=== PATIENT | male | born 1960 | race Caucasian/White ===

== ENCOUNTER 2016-10-28 16:19 | Inpatient (IN) | payer OTHER ==
[~2016-10-28] VITALS: Ht 165.1 cm; Wt 51.4 kg
[~2016-10-28 16:19] MED LIST: ADDERALL12.5 MG PO; ALKA-SELTZER P1 EAC2 PO; AMPHETAMINE S12.5 MG PO; ATROVENT H200 INHALA IH; CHANTIX1 MG PO; DUONEB 2.5-0.5 M3 ML AEROSOL; GILENYA0.5 MG PO; KLONOPIN0.5 M1 PO; LIORESAL10 MG PO; LIPITOR40 MG PO; NEURONTIN600 MG PO; NORCO 5/3251 TABLET PO; NORVASC5 MG PO; OXYBUTYNIN CHLO15 MG PO; PRILOSEC20 MG PO; PROAIR HFA8.5 GM IH; SINGULAIR10 MG PO; SPIRIVA1 INHALATI IH; SYMBICORT60 INHALAT IH; THEO-24300 MG PO; THEOCHRON200 MG PO; TYLENOL EXTRA500 MG PO; VICKS NYQUIL C236 ML PO; ZESTRIL40 MG PO; ZYBAN 150 MG T150 MG PO
[2016-10-28 17:01] LABS: HEMATOCRIT 37.3 % (38.0-50.0); MCH 31.9 PG (29.0-34.0); MCHC 32.7 G/DL (30.0-36.0); MCV 97.4 FL (86-99); PLATELET COUNT 184 K/uL (156-360); RBC DIS.WIDTH-CV 12.5 % (11.8-14.6); RBC DIS.WIDTH-SD 42.5 % (39-53); RED BLOOD COUNT 3.83 M/uL (4.00-5.50); WHITE BLOOD COUNT 3.5 K/uL (4.1-10.2)
[2016-10-28 17:13] LABS: CHLORIDE 99 mEq/L (99-109); POTASSIUM 3.9 mEq/L (3.7-5.4); SODIUM 138 mEq/L (136-147)
[2016-10-28 17:14] LABS: GLUCOSE 114 mg/dL (70-99)
[2016-10-28 17:16] LABS: ANION GAP 8 MEQ/L (2-14)
[2016-10-28 17:18] LABS: GFR ESTIMATE (CALCULATED) > 59 mL/min/
[2016-10-28 17:19] LABS: UREA NITROGEN (BUN) 16 mg/dL (9-23)
[2016-10-28 17:22] LABS: TROP-I INTERPRETATION NEGATIVE; TROPONIN-I < 0.01 ng/mL (0.0-0.30)
[2016-10-28] MEDS ORDERED: BACLOFEN20 MG PO (20:04)
[2016-10-28] MEDS ORDERED: AMOX TR-K CLV1 EAC4 PO (20:15)
[2016-10-28 20:49] LABS: BASE EXCESS 3.7 mEq/L (-3 to +3); BICARBONATE 31.7 mEq/L (22-26); CARBOXY HGB 1.3 % (0-5); METHEMOGLOBIN 1.2 % (0-1.5); PCO2 63 mm Hg (35-45); PO2 211 mm Hg (80-100); pH 7.31 (7.35-7.45)
[2016-10-28 20:50] LABS: COMMENTS - BLOOD GASES C+A+; DEVICE NEBULIZER; O2 FLOW 7 L/MIN; SITE RR
[2016-10-28 22:30] LABS: TROP-I INTERPRETATION NEGATIVE; TROPONIN-I < 0.01 ng/mL (0.0-0.30)
[2016-10-29] VITALS (7 sets, daily range): BP systolic 114–150; BP diastolic 76–88
[2016-10-29 04:41] LABS: MCH 32.2 PG (29.0-34.0); MCHC 33.3 G/DL (30.0-36.0); MCV 96.5 FL (86-99); MEAN PLAT.VOLUME 9.7 uM^3 (9.0-12.4); PLATELET COUNT 190 K/uL (156-360); RBC DIS.WIDTH-CV 12.5 % (11.8-14.6); RBC DIS.WIDTH-SD 42.5 % (39-53); RED BLOOD COUNT 3.73 M/uL (4.00-5.50); WHITE BLOOD COUNT 4.1 K/uL (4.1-10.2)
[2016-10-29 04:58] LABS: CHLORIDE 99 mEq/L (99-109); POTASSIUM 4.3 mEq/L (3.7-5.4); SODIUM 135 mEq/L (136-147)
[2016-10-29 04:59] LABS: GLUCOSE 151 mg/dL (70-99)
[2016-10-29 05:01] LABS: ANION GAP 8 MEQ/L (2-14)
[2016-10-29 05:03] LABS: GFR ESTIMATE (CALCULATED) > 59 mL/min/
[2016-10-29 05:04] LABS: UREA NITROGEN (BUN) 13 mg/dL (9-23)
[2016-10-29 05:13] LABS: TROP-I INTERPRETATION NEGATIVE; TROPONIN-I < 0.01 ng/mL (0.0-0.30)
[2016-10-29 15:31] LABS: BASE EXCESS 7.9 mEq/L (-3 to +3); BICARBONATE 33.3 mEq/L (22-26); CARBOXY HGB 1.7 % (0-5); COMMENTS - BLOOD GASES A+C+; DEVICE NC; METHEMOGLOBIN 1.4 % (0-1.5); O2 FLOW 2 L/MIN; PCO2 49 mm Hg (35-45); PO2 57 mm Hg (80-100); SITE LR; TOTAL RESP RATE 26 resp/min; pH 7.44 (7.35-7.45)
[2016-10-30 03:00] VITALS: BP 111/69
[2016-10-30 07:18] LABS: ANION GAP 14 MEQ/L (2-14); CHLORIDE 96 MEQ/L (99-109); GFR ESTIMATE (CALCULATED) > 59 mL/min/; GLUCOSE 122 mg/dL (70-99); POTASSIUM 4.4 MEQ/L (3.7-5.4); SAMPLE HEMOLYSIS CHECK 0; SAMPLE ICTERIC CHECK 0; SAMPLE LIPEMIA CHECK 0; SODIUM 138 MEQ/L (136-147)
[2016-10-30 07:27] LABS: UREA NITROGEN (BUN) 21 mg/dL (9-23)
[2016-10-30 08:02] VITALS: BP 134/85
[2016-10-30 11:45] VITALS: BP 132/97
[2016-10-30 16:47] VITALS: BP 116/80
[2016-10-30 19:24] VITALS: BP 132/85
[2016-10-30 23:20] VITALS: BP 116/71
[2016-10-31 03:38] VITALS: BP 108/76
[2016-10-31 07:17] LABS: HEMATOCRIT 35.5 % (38.0-50.0); MCH 31.5 PG (29.0-34.0); MCHC 32.7 G/DL (30.0-36.0); MCV 96.5 FL (86-99); MEAN PLAT.VOLUME 10.2 uM^3 (9.0-12.4); PLATELET COUNT 241 K/uL (156-360); RBC DIS.WIDTH-CV 13.1 % (11.8-14.6); RBC DIS.WIDTH-SD 45.6 % (39-53); RED BLOOD COUNT 3.68 M/uL (4.00-5.50)
[2016-10-31 07:21] LABS: WHITE BLOOD COUNT 8.7 K/uL (4.1-10.2)
[2016-10-31 07:37] LABS: ANION GAP 9 MEQ/L (2-14); CHLORIDE 96 MEQ/L (99-109); GFR ESTIMATE (CALCULATED) > 59 mL/min/; GLUCOSE 117 mg/dL (70-99); POTASSIUM 4.1 MEQ/L (3.7-5.4); SAMPLE HEMOLYSIS CHECK 0; SAMPLE ICTERIC CHECK 0; SAMPLE LIPEMIA CHECK 0; SODIUM 136 MEQ/L (136-147); UREA NITROGEN (BUN) 30 mg/dL (9-23)
[2016-10-31 09:00] VITALS: BP 135/70
[2016-10-31 12:00] VITALS: BP 122/74
[2016-10-31 16:00] VITALS: BP 124/67
[2016-10-31 19:14] VITALS: BP 120/80
[2016-11-01 00:12] VITALS: BP 131/65
[2016-11-01 04:15] VITALS: BP 109/69
[2016-11-01 06:38] LABS: HEMATOCRIT 37.2 % (38.0-50.0); MCHC 33.1 G/DL (30.0-36.0); MCV 96.9 FL (86-99); MEAN PLAT.VOLUME 10.2 uM^3 (9.0-12.4); PLATELET COUNT 222 K/uL (156-360); RBC DIS.WIDTH-CV 12.8 % (11.8-14.6); RBC DIS.WIDTH-SD 45.3 % (39-53); RED BLOOD COUNT 3.84 M/uL (4.00-5.50); WHITE BLOOD COUNT 8.7 K/uL (4.1-10.2)
[2016-11-01 07:07] LABS: ANION GAP 7 MEQ/L (2-14); CHLORIDE 97 MEQ/L (99-109); GFR ESTIMATE (CALCULATED) > 59 mL/min/; GLUCOSE 100 mg/dL (70-99); POTASSIUM 4.1 MEQ/L (3.7-5.4); SAMPLE HEMOLYSIS CHECK 0; SAMPLE ICTERIC CHECK 0; SAMPLE LIPEMIA CHECK 0; SODIUM 137 MEQ/L (136-147); UREA NITROGEN (BUN) 25 mg/dL (9-23)
[2016-11-01] MEDS ORDERED: AZITHROMYCIN500 M1 PO (07:38)
[2016-11-01] MEDS ORDERED: SPIRIVA1 INHALATI IH (07:39)
[2016-11-01] MEDS ORDERED: MEDROL DOSEPAK4 MG PO (08:07)
[2016-11-01 20:52] VITALS: BP 150/86
[2016-11-01 23:41] VITALS: BP 112/66
[2016-11-02 01:00] VITALS: BP 124/72
[2016-11-02 08:08] VITALS: BP 130/78
[2016-11-02 16:32] VITALS: BP 144/80
== END 2016-11-02 17:56 | disposition home or self-care (01) | DRG 190 ==
LOC: EME → EDBD 16:19 → EME 16:19 → EDOF 19:42 → 4EAST 20:26 → EDOF 20:26 → 4EAST 10-29 00:55 → 4SOUTH 11-02 01:00
PROVIDERS: Emergency Medicine; Hospitalist; Internal Medicine; Physician Assistant Medical
PROC: 5A09457 Assistance with Respiratory Ventilation, 24-96 Consecutive Hours, Continuous Positive Airway Pressure (ICD-10-PCS; principal; 2016-10-29)
DX: J44.1 Chronic obstructive pulmonary disease with (acute) exacerbation (principal); J96.21 Acute and chronic respiratory failure with hypoxia; E87.2 Acidosis; G35 Multiple sclerosis; Z99.81 Dependence on supplemental oxygen; Z68.1 Body mass index [BMI] 19.9 or less, adult; C34.90 Malignant neoplasm of unspecified part of unspecified bronchus or lung; I10 Essential (primary) hypertension; R91.8 Other nonspecific abnormal finding of lung field; F10.20 Alcohol dependence, uncomplicated; E78.5 Hyperlipidemia, unspecified; Z66 Do not resuscitate; K21.9 Gastro-esophageal reflux disease without esophagitis; F41.9 Anxiety disorder, unspecified; I25.10 Atherosclerotic heart disease of native coronary artery without angina pectoris; Z87.891 Personal history of nicotine dependence
CPT/HCPCS: 36600; 71020; 71275; 80048; 82803; 82948; 84484; 85027; 87070; 87205; 93005; 94002; 94640; 94640 76; 94644; 94660; 94668; 94760; 94799; 99202; 99281; 99285; J1100; J1650; J2920; J2930; J7030; J7644

== ENCOUNTER 2017-07-09 15:08 | Emergency (ER) | payer OTHER ==
[~2017-07-09] VITALS: Ht 165.1 cm; Wt 45.1 kg
[~2017-07-09 15:08] MED LIST changes: +AMOX TR-K CLV1 EAC4 PO; +AZITHROMYCIN500 M1 PO; +BACLOFEN20 MG PO; +MEDROL DOSEPAK4 MG PO
[2017-07-09 16:44] LABS: HEMATOCRIT 38.5 % (38.0-50.0); MCH 28.4 PG (29.0-34.0); MCHC 31.4 G/DL (30.0-36.0); MCV 90.4 FL (86-99); MEAN PLAT.VOLUME 9.4 uM^3 (9.0-12.4); PLATELET COUNT 344 K/uL (156-360); RBC DIS.WIDTH-CV 13.5 % (11.8-14.6); RBC DIS.WIDTH-SD 45.1 % (39-53); RED BLOOD COUNT 4.26 M/uL (4.00-5.50); WHITE BLOOD COUNT 9.7 K/uL (4.1-10.2)
[2017-07-09 16:50] LABS: CHLORIDE 99 mEq/L (99-109); POTASSIUM 4.4 mEq/L (3.7-5.4); SODIUM 137 mEq/L (136-147)
[2017-07-09 16:51] LABS: GLUCOSE 91 mg/dL (70-99)
[2017-07-09 16:53] LABS: ANION GAP 14 MEQ/L (2-14)
[2017-07-09 16:55] LABS: GFR ESTIMATE (CALCULATED) > 59 mL/min/
[2017-07-09 16:56] LABS: UREA NITROGEN (BUN) 16 mg/dL (9-23)
[2017-07-09 17:04] LABS: TROP-I INTERPRETATION NEGATIVE; TROPONIN-I < 0.01 ng/mL (0.0-0.30)
[2017-07-09] MEDS ORDERED: PREDNISONE20 MG PO (19:38)
[2017-07-09 20:18] VITALS: BP 112/89
== END 2017-07-09 20:19 | disposition home or self-care (01) ==
LOC: EME 15:08
PROVIDERS: Emergency Medicine
DX: J44.1 Chronic obstructive pulmonary disease with (acute) exacerbation (principal); G35 Multiple sclerosis; E78.5 Hyperlipidemia, unspecified; Z98.2 Presence of cerebrospinal fluid drainage device; Z87.891 Personal history of nicotine dependence
CPT/HCPCS: 71010; 80048; 84484; 85027; 93005; 94644; 99281; 99284; J2930

== ENCOUNTER 2017-08-05 14:22 | Inpatient (IN) | payer OTHER ==
[~2017-08-05] VITALS: Ht 165.1 cm; Wt 45.5 kg
[~2017-08-05 14:22] MED LIST changes: +PREDNISONE20 MG PO; +WELLBUTRIN SR150 MG PO; -ZYBAN 150 MG T150 MG PO
[2017-08-05 15:19] LABS: EOSINOPHIL (%) 0.8 % (0-5); EOSINOPHIL COUNT 0.1 K/uL (0-0.3); HEMATOCRIT 33.6 % (38.0-50.0); IMMATURE GRANULOCYTE (%) 0.5 % (0.0-0.7); IMMATURE GRANULOCYTE COUNT 0.1 K/uL; INSTRUMENT ABS NEUTROPHIL CT 8.7 K/uL; LYMPHOCYTE COUNT 0.2 K/uL (1.0-2.8); MCH 28.1 PG (29.0-34.0); MCV 90.8 FL (86-99); MEAN PLAT.VOLUME 9.6 uM^3 (9.0-12.4); MONOCYTE (%) 7.2 % (3-12); MONOCYTE COUNT 0.7 K/uL (0-0.8); NEUTROPHIL (%) 88.8 % (45-76); NEUTROPHIL COUNT 8.7 K/uL (1.8-6.4); PLATELET COUNT 344 K/uL (156-360); RBC DIS.WIDTH-SD 46.9 % (39-53); WHITE BLOOD COUNT 9.8 K/uL (4.1-10.2)
[2017-08-05 15:28] LABS: CHLORIDE 98 mEq/L (99-109); POTASSIUM 4.2 mEq/L (3.7-5.4); SODIUM 136 mEq/L (136-147)
[2017-08-05 15:30] LABS: GLUCOSE 143 mg/dL (70-99)
[2017-08-05 15:31] LABS: ANION GAP 11 MEQ/L (2-14)
[2017-08-05 15:32] LABS: TOTAL BILIRUBIN 0.2 mg/dL (0.0-1.0)
[2017-08-05 15:33] LABS: ALKALINE PHOSPHATASE 108 IU/L (3-129)
[2017-08-05 15:34] LABS: GFR ESTIMATE (CALCULATED) > 59 mL/min/
[2017-08-05 15:35] LABS: UREA NITROGEN (BUN) 15 mg/dL (9-23)
[2017-08-05 15:40] LABS: TROP-I INTERPRETATION NEGATIVE; TROPONIN-I < 0.01 ng/mL (0.0-0.30)
[2017-08-05] MEDS ORDERED: SPIRIVA1 INHALATI IH (17:27)
[2017-08-05] MEDS ORDERED: ADVAIR 500/501 DISK IH (17:31)
[2017-08-05] MEDS ORDERED: ZANTAC150 MG PO (17:31)
[2017-08-05] MEDS ORDERED: FLUVIRIN 245 MCG/019 IM (17:31)
[2017-08-05 19:24] LABS: FERRITIN 199 NG/ML (22-322)
[2017-08-05 20:36] LABS: ADD MIUA? NO; BILIRUBIN NEGATIVE; BLOOD NEGATIVE; COLOR YELLOW ((YELLOW)); GLUCOSE (STRIP) 150; KETONES NEGATIVE; LEUKOCYTES NEGATIVE; NITRITE NEGATIVE; PROTEIN (STRIP) NEGATIVE; SPECIFIC GRAVITY 1.011 (1.000-1.030); UROBILINOGEN 0.2 MG/DL (0.2-1.0)
[2017-08-05 21:30] LABS: IRON < 10 MCG/DL (35-150)
[2017-08-06] VITALS (7 sets, daily range): BP systolic 117–156; BP diastolic 69–93
[2017-08-06 06:47] LABS: EOSINOPHIL (%) 0 % (0-5); HEMATOCRIT 31.2 % (38.0-50.0); IMMATURE GRANULOCYTE (%) 0.4 % (0.0-0.7); INSTRUMENT ABS NEUTROPHIL CT 4.1 K/uL; LYMPHOCYTE COUNT 0.1 K/uL (1.0-2.8); MCH 27.8 PG (29.0-34.0); MCHC 31.4 G/DL (30.0-36.0); MCV 88.4 FL (86-99); MEAN PLAT.VOLUME 9.5 uM^3 (9.0-12.4); MONOCYTE COUNT 0.4 K/uL (0-0.8); NEUTROPHIL (%) 89.2 % (45-76); NEUTROPHIL COUNT 4.1 K/uL (1.8-6.4); PLATELET COUNT 372 K/uL (156-360); RBC DIS.WIDTH-CV 13.9 % (11.8-14.6); RBC DIS.WIDTH-SD 45.2 % (39-53); RED BLOOD COUNT 3.53 M/uL (4.00-5.50); WHITE BLOOD COUNT 4.6 K/uL (4.1-10.2)
[2017-08-06 07:40] LABS: ANION GAP 9 MEQ/L (2-14); CHLORIDE 100 MEQ/L (99-109); GFR ESTIMATE (CALCULATED) > 59 mL/min/; GLUCOSE 127 mg/dL (70-99); POTASSIUM 4.7 MEQ/L (3.7-5.4); SAMPLE HEMOLYSIS CHECK 0; SAMPLE ICTERIC CHECK 0; SAMPLE LIPEMIA CHECK 0; SODIUM 137 MEQ/L (136-147); UREA NITROGEN (BUN) 14 mg/dL (9-23)
[2017-08-06 09:25] LABS: INTERNAL CONTROL VALID? YES
[2017-08-06 15:46] LABS: INFLUENZA A VIRAL ANTIGEN NEGATIVE; INFLUENZA B VIRAL ANTIGEN NEGATIVE
[2017-08-07 03:48] VITALS: BP 131/80
[2017-08-07 06:06] LABS: EOSINOPHIL (%) 0 % (0-5); HEMATOCRIT 33.7 % (38.0-50.0); IMMATURE GRANULOCYTE (%) 0.4 % (0.0-0.7); INSTRUMENT ABS NEUTROPHIL CT 6.5 K/uL; LYMPHOCYTE COUNT 0.1 K/uL (1.0-2.8); MCH 28.7 PG (29.0-34.0); MCHC 32.3 G/DL (30.0-36.0); MCV 88.7 FL (86-99); MEAN PLAT.VOLUME 9.6 uM^3 (9.0-12.4); MONOCYTE (%) 7.2 % (3-12); MONOCYTE COUNT 0.5 K/uL (0-0.8); NEUTROPHIL (%) 90.9 % (45-76); NEUTROPHIL COUNT 6.5 K/uL (1.8-6.4); PLATELET COUNT 483 K/uL (156-360); RBC DIS.WIDTH-CV 14.1 % (11.8-14.6); RBC DIS.WIDTH-SD 45.5 % (39-53); WHITE BLOOD COUNT 7.1 K/uL (4.1-10.2)
[2017-08-07 06:38] LABS: ALKALINE PHOSPHATASE 102 IU/L (3-129); ANION GAP 10 MEQ/L (2-14); CHLORIDE 102 MEQ/L (99-109); GFR ESTIMATE (CALCULATED) > 59 mL/min/; GLUCOSE 128 mg/dL (70-99); POTASSIUM 4.8 MEQ/L (3.7-5.4); SAMPLE HEMOLYSIS CHECK 0; SAMPLE ICTERIC CHECK 0; SAMPLE LIPEMIA CHECK 0; SODIUM 142 MEQ/L (136-147); TOTAL BILIRUBIN 0.2 MG/DL (0.0-1.0); UREA NITROGEN (BUN) 16 mg/dL (9-23)
[2017-08-07 07:35] VITALS: BP 134/83
[2017-08-07 12:35] VITALS: BP 156/85
[2017-08-07 15:28] VITALS: BP 135/86
[2017-08-07 20:01] VITALS: BP 149/81
[2017-08-07 23:59] VITALS: BP 128/75
[2017-08-08 04:14] VITALS: BP 124/71
[2017-08-08 08:06] VITALS: BP 121/88
[2017-08-08 11:55] VITALS: BP 142/82
[2017-08-08 16:26] VITALS: BP 134/92
[2017-08-09 00:07] VITALS: BP 140/90
[2017-08-09 08:58] VITALS: BP 137/90
[2017-08-09 15:35] VITALS: BP 135/61
[2017-08-09 23:32] VITALS: BP 128/75
[2017-08-10 05:58] LABS: HEMATOCRIT 38.7 % (38.0-50.0); MCH 27.8 PG (29.0-34.0); MCHC 30.5 G/DL (30.0-36.0); MCV 91.3 FL (86-99); MEAN PLAT.VOLUME 9.6 uM^3 (9.0-12.4); PLATELET COUNT 510 K/uL (156-360); RBC DIS.WIDTH-CV 14.3 % (11.8-14.6); RBC DIS.WIDTH-SD 47.6 % (39-53); RED BLOOD COUNT 4.24 M/uL (4.00-5.50); WHITE BLOOD COUNT 12.1 K/uL (4.1-10.2)
[2017-08-10 08:07] VITALS: BP 110/54; BP 113/80
[2017-08-10 16:37] VITALS: BP 124/78
[2017-08-11 00:13] VITALS: BP 104/61
[2017-08-11 06:13] LABS: HEMATOCRIT 36.6 % (38.0-50.0); MCH 28.6 PG (29.0-34.0); MCHC 31.4 G/DL (30.0-36.0); MEAN PLAT.VOLUME 9.6 uM^3 (9.0-12.4); PLATELET COUNT 461 K/uL (156-360); RBC DIS.WIDTH-CV 14.5 % (11.8-14.6); RBC DIS.WIDTH-SD 47.8 % (39-53); RED BLOOD COUNT 4.02 M/uL (4.00-5.50)
[2017-08-11 08:00] VITALS: BP 110/71
[2017-08-11 12:00] VITALS: BP 104/67
[2017-08-11 16:00] VITALS: BP 116/79
[2017-08-12 00:21] VITALS: BP 97/60
[2017-08-12 06:02] LABS: HEMATOCRIT 36.1 % (38.0-50.0); MCH 28.1 PG (29.0-34.0); MCHC 30.5 G/DL (30.0-36.0); MCV 92.1 FL (86-99); MEAN PLAT.VOLUME 9.7 uM^3 (9.0-12.4); PLATELET COUNT 446 K/uL (156-360); RBC DIS.WIDTH-CV 14.8 % (11.8-14.6); RBC DIS.WIDTH-SD 49.1 % (39-53); RED BLOOD COUNT 3.92 M/uL (4.00-5.50); WHITE BLOOD COUNT 17.4 K/uL (4.1-10.2)
[2017-08-12 07:59] VITALS: BP 135/69
[2017-08-12 15:33] VITALS: BP 124/71
[2017-08-12 23:35] VITALS: BP 115/79
[2017-08-13 06:33] LABS: HEMATOCRIT 36.6 % (38.0-50.0); MCH 28.4 PG (29.0-34.0); MCHC 31.1 G/DL (30.0-36.0); MCV 91.3 FL (86-99); MEAN PLAT.VOLUME 9.6 uM^3 (9.0-12.4); PLATELET COUNT 418 K/uL (156-360); RBC DIS.WIDTH-CV 14.8 % (11.8-14.6); RBC DIS.WIDTH-SD 49.1 % (39-53); RED BLOOD COUNT 4.01 M/uL (4.00-5.50); WHITE BLOOD COUNT 17.8 K/uL (4.1-10.2)
[2017-08-13 07:49] VITALS: BP 92/67
[2017-08-13 16:44] VITALS: BP 91/66
[2017-08-13 23:35] VITALS: BP 142/74
[2017-08-14 06:03] LABS: HEMATOCRIT 35.1 % (38.0-50.0); MCHC 31.3 G/DL (30.0-36.0); MCV 89.3 FL (86-99); MEAN PLAT.VOLUME 9.7 uM^3 (9.0-12.4); PLATELET COUNT 424 K/uL (156-360); RBC DIS.WIDTH-CV 14.6 % (11.8-14.6); RBC DIS.WIDTH-SD 47.7 % (39-53); RED BLOOD COUNT 3.93 M/uL (4.00-5.50); WHITE BLOOD COUNT 13.7 K/uL (4.1-10.2)
[2017-08-14 08:52] VITALS: BP 132/81
[2017-08-14 15:00] VITALS: BP 114/69
[2017-08-15 00:18] VITALS: BP 104/67
[2017-08-15 07:55] VITALS: BP 108/83
[2017-08-15 10:48] VITALS: BP 107/65
[2017-08-15] MEDS ORDERED: MIRTAZAPINE30 MG PO (12:10)
[2017-08-15] MEDS ORDERED: FLONASE16 G1 BOTH NARES (12:11)
[2017-08-15] MEDS ORDERED: MUCINEX600 MG PO (12:11)
[2017-08-15] MEDS ORDERED: DOCUSATE SODIU100 MG PO (12:12)
[2017-08-15] MEDS ORDERED: THEOPHYLLINE400 MG PO (12:16)
[2017-08-15] MEDS ORDERED: LEVAQUIN750 MG PO (12:18)
[2017-08-15] MEDS ORDERED: PREDNISONE10 MG PO (12:19)
== END 2017-08-15 14:45 | disposition home health service (06) | DRG 190 ==
LOC: EME 14:22 → EDOF 18:04 → 5SOUTH 18:04 → ENRESERV 18:05 → 5SOUTH 20:41
PROVIDERS: Emergency Medicine; Hospitalist; Internal Medicine
PROC: 5A09357 Assistance with Respiratory Ventilation, Less than 24 Consecutive Hours, Continuous Positive Airway Pressure (ICD-10-PCS; principal; 2017-08-05)
DX: J44.0 Chronic obstructive pulmonary disease with (acute) lower respiratory infection (principal); J18.9 Pneumonia, unspecified organism; J96.21 Acute and chronic respiratory failure with hypoxia; F33.9 Major depressive disorder, recurrent, unspecified; Z68.1 Body mass index [BMI] 19.9 or less, adult; J44.1 Chronic obstructive pulmonary disease with (acute) exacerbation; D64.9 Anemia, unspecified; E78.5 Hyperlipidemia, unspecified; G35 Multiple sclerosis; I10 Essential (primary) hypertension; F41.9 Anxiety disorder, unspecified; F10.21 Alcohol dependence, in remission; G47.33 Obstructive sleep apnea (adult) (pediatric); Z99.89 Dependence on other enabling machines and devices; K59.00 Constipation, unspecified; K21.9 Gastro-esophageal reflux disease without esophagitis; Z87.891 Personal history of nicotine dependence; Z82.5 Family history of asthma and other chronic lower respiratory diseases; Z86.011 Personal history of benign neoplasm of the brain; Z98.2 Presence of cerebrospinal fluid drainage device; Z99.81 Dependence on supplemental oxygen; N40.0 Benign prostatic hyperplasia without lower urinary tract symptoms; N32.89 Other specified disorders of bladder; Z91.041 Radiographic dye allergy status; Z88.6 Allergy status to analgesic agent
CPT/HCPCS: 71010; 71020; 74176; 78580; 80048; 80053; 80198; 81003; 82272; 82607; 82728; 83540; 84443; 84484; 85025; 85027; 85379; 87040; 87070; 87106; 87205; 87449; 87502; 94010; 94640; 94640 76; 94660; 94667; 94668; 94760; 94799; 97530 GO; 97530 GP; 99202; 99281; 99285; A9540; J0456; J0696; J1100; J1650; J1956; J2405; J2920; J2930; J3475; J7030; J7050; J7512; J7644

== ENCOUNTER 2017-09-18 14:55 | Inpatient (IN) | payer OTHER ==
[~2017-09-18] VITALS: Ht 165.1 cm; Wt 48.4 kg
[~2017-09-18 14:55] MED LIST changes: +ADVAIR 500/501 DISK IH; +DOCUSATE SODIU100 MG PO; +FLONASE16 G1 BOTH NARES; +FLUVIRIN 245 MCG/019 IM; +LEVAQUIN750 MG PO; +MIRTAZAPINE30 MG PO; +MUCINEX600 MG PO; +PREDNISONE10 MG PO; +THEOPHYLLINE400 MG PO; +ZANTAC150 MG PO
[2017-09-18 15:19] LABS: EOSINOPHIL (%) 0.5 % (0-5); EOSINOPHIL COUNT 0.1 K/uL (0-0.3); HEMATOCRIT 36.1 % (38.0-50.0); IMMATURE GRANULOCYTE (%) 0.8 % (0.0-0.7); IMMATURE GRANULOCYTE COUNT 0.1 K/uL; INSTRUMENT ABS NEUTROPHIL CT 9.6 K/uL; LYMPHOCYTE COUNT 0.2 K/uL (1.0-2.8); MCHC 30.2 G/DL (30.0-36.0); MCV 89.6 FL (86-99); MONOCYTE (%) 10.2 % (3-12); MONOCYTE COUNT 1.1 K/uL (0-0.8); NEUTROPHIL (%) 86.3 % (45-76); NEUTROPHIL COUNT 9.6 K/uL (1.8-6.4); PLATELET COUNT 396 K/uL (156-360); RBC DIS.WIDTH-CV 15.7 % (11.8-14.6); RBC DIS.WIDTH-SD 51.7 % (39-53); RED BLOOD COUNT 4.03 M/uL (4.00-5.50); WHITE BLOOD COUNT 11.1 K/uL (4.1-10.2)
[2017-09-18 15:28] LABS: CHLORIDE 96 mEq/L (99-109); POTASSIUM 4.2 mEq/L (3.7-5.4); SODIUM 137 mEq/L (136-147)
[2017-09-18 15:29] LABS: MAGNESIUM 1.9 mg/dL (1.3-2.7)
[2017-09-18 15:31] LABS: GLUCOSE 114 mg/dL (70-99)
[2017-09-18 15:32] LABS: ANION GAP 9 MEQ/L (2-14)
[2017-09-18 15:33] LABS: TOTAL BILIRUBIN 0.2 mg/dL (0.0-1.0)
[2017-09-18 15:34] LABS: ALKALINE PHOSPHATASE 155 IU/L (3-129)
[2017-09-18 15:35] LABS: GFR ESTIMATE (CALCULATED) > 59 mL/min/
[2017-09-18 15:36] LABS: UREA NITROGEN (BUN) 14 mg/dL (9-23)
[2017-09-18 15:38] LABS: CREATINE KINASE 33 IU/L (1-294); TOTAL CK 33 IU/L (1-294)
[2017-09-18 15:40] LABS: TROP-I INTERPRETATION NEGATIVE; TROPONIN-I < 0.01 ng/mL (0.0-0.30)
[2017-09-18 15:43] LABS: CK-MB 4.1 ng/mL (0.0-4.9)
[2017-09-18 16:21] LABS: THEOPHYLLINE 9.6 MCG/ML (10-20)
[2017-09-18] MEDS ORDERED: LEVALBUTER1.25 MG/3 IH (16:36)
[2017-09-18] MEDS ORDERED: THEO-DUR,THEOC300 MG PO (16:38)
[2017-09-18] MEDS ORDERED: BREO ELLIPTA 21 EACH IH (16:41)
[2017-09-18 16:58] LABS: ADD MIUA? YES; BILIRUBIN NEGATIVE; BLOOD NEGATIVE; COLOR YELLOW ((YELLOW)); GLUCOSE (STRIP) NEGATIVE; KETONES NEGATIVE; LEUKOCYTES TRACE; NITRITE NEGATIVE; PROTEIN (STRIP) NEGATIVE; SPECIFIC GRAVITY 1.023 (1.000-1.030)
[2017-09-18 17:07] LABS: BACTERIA NONE SEEN /HPF; EPITHELIAL CELLS RARE /HPF; HYALINE CASTS 0-5 /LPF; MUCUS TRACE /LPF; RED BLOOD CELLS 0-5 /HPF (0-5); UCUL ADDED? YES
[2017-09-18 17:41] LABS: BASE EXCESS 9.1 mEq/L (-3 to +3); BICARBONATE 34.6 mEq/L (22-26); CARBOXY HGB 1.7 % (0-5); METHEMOGLOBIN 0.8 % (0-1.5); PCO2 51 mm Hg (35-45); pH 7.44 (7.35-7.45)
[2017-09-18 17:42] LABS: COMMENTS - BLOOD GASES A+C+; CONTINUOUS POS AIRWAY PRESSURE 5 cm H2O; DEVICE VENT; FI02 40 %; MODE SPON; PO2 74 mm Hg (80-100); PRES. SUPPORT 8 CM/H2O; SITE RR; TOTAL RESP RATE 18 resp/min
[2017-09-18 20:04] VITALS: BP 125/92
[2017-09-18 20:44] LABS: METH RESISTANT S AUREUS PCR NEGATIVE (NEGATIVE); PROBE CHECK PASS; SPECIMEN PROCESSING CONTROL PASS
[2017-09-18 21:00] VITALS: BP 113/78
[2017-09-18 22:00] VITALS: BP 124/87
[2017-09-18 23:00] VITALS: BP 122/89
[2017-09-19] VITALS (24 sets, daily range): BP systolic 111–141; BP diastolic 74–95
[2017-09-19 05:22] LABS: EOSINOPHIL (%) 0.1 % (0-5); HEMATOCRIT 32.7 % (38.0-50.0); IMMATURE GRANULOCYTE (%) 0.5 % (0.0-0.7); INSTRUMENT ABS NEUTROPHIL CT 7.7 K/uL; LYMPHOCYTE COUNT 0.1 K/uL (1.0-2.8); MCH 26.7 PG (29.0-34.0); MCHC 30.6 G/DL (30.0-36.0); MCV 87.4 FL (86-99); MEAN PLAT.VOLUME 9.5 uM^3 (9.0-12.4); MONOCYTE (%) 1.4 % (3-12); MONOCYTE COUNT 0.1 K/uL (0-0.8); NEUTROPHIL (%) 96.2 % (45-76); NEUTROPHIL COUNT 7.7 K/uL (1.8-6.4); PLATELET COUNT 361 K/uL (156-360); RBC DIS.WIDTH-CV 15.8 % (11.8-14.6); RBC DIS.WIDTH-SD 50.4 % (39-53); RED BLOOD COUNT 3.74 M/uL (4.00-5.50)
[2017-09-19 05:45] LABS: ANION GAP 9 MEQ/L (2-14); CHLORIDE 98 MEQ/L (99-109); GFR ESTIMATE (CALCULATED) > 59 mL/min/; GLUCOSE 104 mg/dL (70-99); MAGNESIUM 1.9 mg/dl (1.3-2.7); POTASSIUM 4.6 MEQ/L (3.7-5.4); SAMPLE HEMOLYSIS CHECK 0; SAMPLE ICTERIC CHECK 0; SAMPLE LIPEMIA CHECK 0; SODIUM 136 MEQ/L (136-147); UREA NITROGEN (BUN) 12 mg/dL (9-23)
[2017-09-19 12:22] LABS: POINT-OF-CARE METER ID UU13113803
[2017-09-20] VITALS (25 sets, daily range): BP systolic 61–144; BP diastolic 44–93
[2017-09-20 05:44] LABS: GFR ESTIMATE (CALCULATED) > 59 mL/min/
[2017-09-20 05:57] LABS: VANCOMYCIN, TROUGH 8.3 MCG/ML (10-20)
[2017-09-20 09:20] LABS: BASE EXCESS 3.5 mEq/L (-3 to +3); BICARBONATE 29.1 mEq/L (22-26); CARBOXY HGB 1.3 % (0-5); COMMENTS - BLOOD GASES A+C+; DEVICE MASK VENT; METHEMOGLOBIN 1.3 % (0-1.5); PCO2 48 mm Hg (35-45); PO2 69 mm Hg (80-100); SITE RR; pH 7.39 (7.35-7.45)
[2017-09-20 09:21] LABS: FI02 40 %; PEEP 5 CM/H20; PRES. SUPPORT 8 CM/H2O; TOTAL RESP RATE 12 resp/min
[2017-09-20 14:40] LABS: EOSINOPHIL (%) 0 % (0-5); HEMATOCRIT 33.5 % (38.0-50.0); IMMATURE GRANULOCYTE (%) 0.4 % (0.0-0.7); INSTRUMENT ABS NEUTROPHIL CT 6.4 K/uL; MCH 27.6 PG (29.0-34.0); MCHC 31.6 G/DL (30.0-36.0); MCV 87.2 FL (86-99); MEAN PLAT.VOLUME 9.7 uM^3 (9.0-12.4); MONOCYTE (%) 6.7 % (3-12); MONOCYTE COUNT 0.5 K/uL (0-0.8); NEUTROPHIL (%) 92.3 % (45-76); NEUTROPHIL COUNT 6.4 K/uL (1.8-6.4); PLATELET COUNT 398 K/uL (156-360); RBC DIS.WIDTH-CV 15.7 % (11.8-14.6); RBC DIS.WIDTH-SD 50.4 % (39-53); RED BLOOD COUNT 3.84 M/uL (4.00-5.50); WHITE BLOOD COUNT 6.9 K/uL (4.1-10.2)
[2017-09-20 14:50] LABS: ANION GAP 10 MEQ/L (2-14); CHLORIDE 101 MEQ/L (99-109); MAGNESIUM 2.1 mg/dl (1.3-2.7); POTASSIUM 4.3 MEQ/L (3.7-5.4); SAMPLE HEMOLYSIS CHECK 0; SAMPLE ICTERIC CHECK 0; SAMPLE LIPEMIA CHECK 0; SODIUM 139 MEQ/L (136-147); TOTAL BILIRUBIN 0.3 MG/DL (0.0-1.0)
[2017-09-20 14:55] LABS: ALKALINE PHOSPHATASE 104 IU/L (3-129); GFR ESTIMATE (CALCULATED) > 59 mL/min/; GLUCOSE 141 mg/dL (70-99); UREA NITROGEN (BUN) 13 mg/dL (9-23)
[2017-09-20 17:35] LABS: POINT-OF-CARE METER ID UU13113731
[2017-09-21] VITALS (24 sets, daily range): BP systolic 71–122; BP diastolic 50–83
[2017-09-21 01:28] LABS: POINT-OF-CARE METER ID UU14174217
[2017-09-21 06:25] LABS: EOSINOPHIL (%) 0 % (0-5); HEMATOCRIT 31.4 % (38.0-50.0); IMMATURE GRANULOCYTE (%) 0.7 % (0.0-0.7); MCH 27.6 PG (29.0-34.0); MCHC 31.5 G/DL (30.0-36.0); MCV 87.5 FL (86-99); MEAN PLAT.VOLUME 10.1 uM^3 (9.0-12.4); MONOCYTE (%) 7.9 % (3-12); MONOCYTE COUNT 0.4 K/uL (0-0.8); NEUTROPHIL (%) 90.5 % (45-76); PLATELET COUNT 344 K/uL (156-360); RBC DIS.WIDTH-CV 16.2 % (11.8-14.6); RBC DIS.WIDTH-SD 51.6 % (39-53); RED BLOOD COUNT 3.59 M/uL (4.00-5.50); WHITE BLOOD COUNT 4.5 K/uL (4.1-10.2)
[2017-09-21 06:54] LABS: POINT-OF-CARE METER ID UU13113731
[2017-09-21 07:03] LABS: ALKALINE PHOSPHATASE 88 IU/L (3-129); ANION GAP 8 MEQ/L (2-14); CHLORIDE 102 MEQ/L (99-109); GFR ESTIMATE (CALCULATED) > 59 mL/min/; GLUCOSE 125 mg/dL (70-99); POTASSIUM 4.3 MEQ/L (3.7-5.4); SAMPLE HEMOLYSIS CHECK 0; SAMPLE ICTERIC CHECK 0; SAMPLE LIPEMIA CHECK 0; SODIUM 139 MEQ/L (136-147); TOTAL BILIRUBIN 0.3 MG/DL (0.0-1.0); UREA NITROGEN (BUN) 11 mg/dL (9-23)
[2017-09-21 12:45] LABS: POINT-OF-CARE METER ID UU14208751
[2017-09-21 17:15] LABS: POINT-OF-CARE METER ID UU14208751
[2017-09-21 23:19] LABS: POINT-OF-CARE METER ID UU14162636
[2017-09-22] VITALS (25 sets, daily range): BP systolic 0–144; BP diastolic 0–87
[2017-09-22 05:45] LABS: POINT-OF-CARE METER ID UU13113803
[2017-09-22 06:25] LABS: HEMATOCRIT 31.9 % (38.0-50.0); MCH 26.9 PG (29.0-34.0); MCHC 30.7 G/DL (30.0-36.0); MCV 87.6 FL (86-99); MEAN PLAT.VOLUME 9.9 uM^3 (9.0-12.4); PLATELET COUNT 367 K/uL (156-360); RBC DIS.WIDTH-CV 16.2 % (11.8-14.6); RBC DIS.WIDTH-SD 51.8 % (39-53); RED BLOOD COUNT 3.64 M/uL (4.00-5.50); WHITE BLOOD COUNT 6.7 K/uL (4.1-10.2)
[2017-09-22 06:45] LABS: ANION GAP 6 MEQ/L (2-14); CHLORIDE 103 MEQ/L (99-109); GFR ESTIMATE (CALCULATED) > 59 mL/min/; GLUCOSE 178 mg/dL (70-99); POTASSIUM 3.6 MEQ/L (3.7-5.4); SAMPLE HEMOLYSIS CHECK 0; SAMPLE ICTERIC CHECK 0; SAMPLE LIPEMIA CHECK 0; SODIUM 140 MEQ/L (136-147); UREA NITROGEN (BUN) 13 mg/dL (9-23)
[2017-09-22 13:44] LABS: POINT-OF-CARE METER ID UU13113803
[2017-09-22 17:38] LABS: POINT-OF-CARE METER ID UU13113803
[2017-09-22 23:57] LABS: POINT-OF-CARE METER ID UU14314082
[2017-09-23] VITALS (24 sets, daily range): BP systolic 82–151; BP diastolic 52–91
[2017-09-23 04:45] LABS: POINT-OF-CARE METER ID UU13113731
[2017-09-23 04:57] LABS: HEMATOCRIT 32.9 % (38.0-50.0); MCH 27.7 PG (29.0-34.0); MCHC 31.3 G/DL (30.0-36.0); MCV 88.4 FL (86-99); PLATELET COUNT 395 K/uL (156-360); RBC DIS.WIDTH-CV 16.5 % (11.8-14.6); RED BLOOD COUNT 3.72 M/uL (4.00-5.50)
[2017-09-23 05:10] LABS: CHLORIDE 105 mEq/L (99-109); POTASSIUM 3.9 mEq/L (3.7-5.4); SODIUM 142 mEq/L (136-147)
[2017-09-23 05:11] LABS: MAGNESIUM 1.8 mg/dL (1.3-2.7)
[2017-09-23 05:13] LABS: GLUCOSE 167 mg/dL (70-99)
[2017-09-23 05:14] LABS: ANION GAP 9 MEQ/L (2-14)
[2017-09-23 05:15] LABS: TOTAL BILIRUBIN 0.2 mg/dL (0.0-1.0)
[2017-09-23 05:17] LABS: GFR ESTIMATE (CALCULATED) > 59 mL/min/
[2017-09-23 05:18] LABS: ALKALINE PHOSPHATASE 86 IU/L (3-129); UREA NITROGEN (BUN) 14 mg/dL (9-23)
[2017-09-23 12:49] LABS: POINT-OF-CARE METER ID UU13113803
[2017-09-23 17:35] LABS: POINT-OF-CARE METER ID UU14174217
[2017-09-23 23:49] LABS: POINT-OF-CARE METER ID UU13113803
[2017-09-24] VITALS (21 sets, daily range): BP systolic 82–151; BP diastolic 53–93
[2017-09-24 05:37] LABS: POINT-OF-CARE METER ID UU14314082
[2017-09-24 07:17] LABS: ANION GAP 6 MEQ/L (2-14); CHLORIDE 104 MEQ/L (99-109); GFR ESTIMATE (CALCULATED) > 59 mL/min/; GLUCOSE 180 mg/dL (70-99); SAMPLE HEMOLYSIS CHECK 1; SAMPLE ICTERIC CHECK 0; SAMPLE LIPEMIA CHECK 0; SODIUM 141 MEQ/L (136-147); UREA NITROGEN (BUN) 15 mg/dL (9-23)
[2017-09-24 12:32] LABS: POINT-OF-CARE METER ID UU14162636
[2017-09-24 18:18] LABS: POINT-OF-CARE METER ID UU14162636
[2017-09-25] VITALS (23 sets, daily range): BP systolic 80–167; BP diastolic 56–92
[2017-09-25 00:12] LABS: POINT-OF-CARE METER ID UU14162636
[2017-09-25 05:15] LABS: POINT-OF-CARE METER ID UU14174217
[2017-09-25 07:55] LABS: EOSINOPHIL (%) 0 % (0-5); IMMATURE GRANULOCYTE (%) 0.8 % (0.0-0.7); IMMATURE GRANULOCYTE COUNT 0.1 K/uL; INSTRUMENT ABS NEUTROPHIL CT 12.7 K/uL; MCH 28.4 PG (29.0-34.0); MCHC 31.3 G/DL (30.0-36.0); MCV 90.9 FL (86-99); MEAN PLAT.VOLUME 10.5 uM^3 (9.0-12.4); MONOCYTE (%) 3.5 % (3-12); MONOCYTE COUNT 0.5 K/uL (0-0.8); NEUTROPHIL (%) 95.5 % (45-76); NEUTROPHIL COUNT 12.7 K/uL (1.8-6.4); PLATELET COUNT 279 K/uL (156-360); RBC DIS.WIDTH-CV 17.1 % (11.8-14.6); RBC DIS.WIDTH-SD 55.8 % (39-53); RED BLOOD COUNT 3.52 M/uL (4.00-5.50); WHITE BLOOD COUNT 13.3 K/uL (4.1-10.2)
[2017-09-25 08:18] LABS: ANION GAP 8 MEQ/L (2-14); CHLORIDE 105 MEQ/L (99-109); GFR ESTIMATE (CALCULATED) > 59 mL/min/; GLUCOSE 162 mg/dL (70-99); POTASSIUM 3.9 MEQ/L (3.7-5.4); SAMPLE HEMOLYSIS CHECK 0; SAMPLE ICTERIC CHECK 0; SAMPLE LIPEMIA CHECK 0; SODIUM 146 MEQ/L (136-147); UREA NITROGEN (BUN) 14 mg/dL (9-23)
[2017-09-25 12:35] LABS: POINT-OF-CARE METER ID UU14174217
[2017-09-25 17:48] LABS: POINT-OF-CARE METER ID UU14174217
[2017-09-25 23:53] LABS: POINT-OF-CARE METER ID UU14314083
[2017-09-26] VITALS (23 sets, daily range): BP systolic 90–149; BP diastolic 57–97
[2017-09-26 05:20] LABS: POINT-OF-CARE METER ID UU14162636
[2017-09-26 06:07] LABS: EOSINOPHIL (%) 0 % (0-5); HEMATOCRIT 31.2 % (38.0-50.0); IMMATURE GRANULOCYTE (%) 0.6 % (0.0-0.7); IMMATURE GRANULOCYTE COUNT 0.1 K/uL; INSTRUMENT ABS NEUTROPHIL CT 17.7 K/uL; MCH 27.3 PG (29.0-34.0); MCHC 30.1 G/DL (30.0-36.0); MCV 90.7 FL (86-99); MEAN PLAT.VOLUME 10.6 uM^3 (9.0-12.4); MONOCYTE (%) 3.1 % (3-12); MONOCYTE COUNT 0.6 K/uL (0-0.8); NEUTROPHIL (%) 96.1 % (45-76); NEUTROPHIL COUNT 17.7 K/uL (1.8-6.4); PLATELET COUNT 317 K/uL (156-360); RBC DIS.WIDTH-CV 17.2 % (11.8-14.6); RBC DIS.WIDTH-SD 55.9 % (39-53); RED BLOOD COUNT 3.44 M/uL (4.00-5.50); WHITE BLOOD COUNT 18.5 K/uL (4.1-10.2)
[2017-09-26 06:26] LABS: ANION GAP 6 MEQ/L (2-14); CHLORIDE 105 MEQ/L (99-109); GFR ESTIMATE (CALCULATED) > 59 mL/min/; GLUCOSE 144 mg/dL (70-99); POTASSIUM 4.1 MEQ/L (3.7-5.4); SAMPLE HEMOLYSIS CHECK 0; SAMPLE ICTERIC CHECK 0; SAMPLE LIPEMIA CHECK 0; SODIUM 147 MEQ/L (136-147); UREA NITROGEN (BUN) 16 mg/dL (9-23)
[2017-09-26 07:57] LABS: INTERNAL CONTROL VALID? YES
[2017-09-26 11:18] LABS: POINT-OF-CARE METER ID UU14174217
[2017-09-26 17:52] LABS: POINT-OF-CARE METER ID UU14162636
[2017-09-26 19:56] LABS: COLOR BLOODY ((YELLOW)); LEUKOCYTES SMALL; NITRITE NEGATIVE; SPECIFIC GRAVITY 1.026 (1.000-1.030)
[2017-09-26 19:57] LABS: ADD MIUA? YES; BILIRUBIN NEGATIVE; BLOOD LARGE; GLUCOSE (STRIP) NEGATIVE; KETONES NEGATIVE; PROTEIN (STRIP) 30
[2017-09-26 20:15] LABS: RED BLOOD CELLS TNTC /HPF (0-5); UCUL ADDED? YES
[2017-09-27] VITALS (24 sets, daily range): BP systolic 84–160; BP diastolic 54–104
[2017-09-27 00:05] LABS: POINT-OF-CARE METER ID UU14174217; POINT-OF-CARE USER ID RADDRS44
[2017-09-27 06:12] LABS: POINT-OF-CARE METER ID UU14162636; POINT-OF-CARE USER ID RADDRS44
[2017-09-27 11:50] LABS: POINT-OF-CARE METER ID UU14208751
[2017-09-27 17:23] LABS: POINT-OF-CARE METER ID UU14162636
[2017-09-28] VITALS (23 sets, daily range): BP systolic 111–178; BP diastolic 72–130
[2017-09-28 06:10] LABS: EOSINOPHIL (%) 0 % (0-5); HEMATOCRIT 32.8 % (38.0-50.0); IMMATURE GRANULOCYTE COUNT 0.2 K/uL; INSTRUMENT ABS NEUTROPHIL CT 16.2 K/uL; MCH 27.7 PG (29.0-34.0); MCHC 30.2 G/DL (30.0-36.0); MCV 91.9 FL (86-99); MEAN PLAT.VOLUME 10.8 uM^3 (9.0-12.4); MONOCYTE (%) 4.4 % (3-12); MONOCYTE COUNT 0.8 K/uL (0-0.8); NEUTROPHIL (%) 94.3 % (45-76); NEUTROPHIL COUNT 16.2 K/uL (1.8-6.4); PLATELET COUNT 282 K/uL (156-360); RBC DIS.WIDTH-SD 58.5 % (39-53); RED BLOOD COUNT 3.57 M/uL (4.00-5.50); WHITE BLOOD COUNT 17.2 K/uL (4.1-10.2)
[2017-09-28 06:39] LABS: ANION GAP 9 MEQ/L (2-14); CHLORIDE 103 MEQ/L (99-109); GFR ESTIMATE (CALCULATED) > 59 mL/min/ (58.99-99999); GLUCOSE 150 mg/dL (70-99); POTASSIUM 4.3 MEQ/L (3.7-5.4); SAMPLE HEMOLYSIS CHECK 0; SAMPLE ICTERIC CHECK 0; SAMPLE LIPEMIA CHECK 0; SODIUM 146 MEQ/L (136-147); UREA NITROGEN (BUN) 19 mg/dL (9-23)
[2017-09-29] VITALS (15 sets, daily range): BP systolic 123–175; BP diastolic 84–132
[2017-09-30] VITALS (12 sets, daily range): BP systolic 70–163; BP diastolic 53–111
[2017-10-01] VITALS (10 sets, daily range): BP systolic 137–163; BP diastolic 90–103
[2017-10-01 15:31] LABS: ANION GAP 13 MEQ/L (2-14); CHLORIDE 97 MEQ/L (99-109); GFR ESTIMATE (CALCULATED) > 59 mL/min/ (58.99-99999); GLUCOSE 67 mg/dL (70-99); POTASSIUM 3.8 MEQ/L (3.7-5.4); SAMPLE HEMOLYSIS CHECK 0; SAMPLE ICTERIC CHECK 0; SAMPLE LIPEMIA CHECK 0; SODIUM 144 MEQ/L (136-147); UREA NITROGEN (BUN) 22 mg/dL (9-23)
[2017-10-01 19:59] LABS: MCH 28.1 PG (29.0-34.0); MCHC 31.7 G/DL (30.0-36.0); MCV 88.7 FL (86-99); MEAN PLAT.VOLUME 11.5 uM^3 (9.0-12.4); PLATELET COUNT 259 K/uL (156-360); RBC DIS.WIDTH-CV 19.1 % (11.8-14.6); RBC DIS.WIDTH-SD 60.1 % (39-53); RED BLOOD COUNT 4.62 M/uL (4.00-5.50); WHITE BLOOD COUNT 28.8 K/uL (4.1-10.2)
[2017-10-02 16:31] VITALS: BP 00/00
== END 2017-10-02 18:58 | disposition hospice, home (50) | DRG 166 ==
LOC: EME 14:55 → EDOF 16:48 → 4WEST 16:48 → ENRESERV 16:53 → 4WEST 19:17 → ENRESERV 10-01 13:52 → 4WEST 10-01 15:24 → ENRESERV 10-01 16:42 → 5EAST 10-01 19:11
PROVIDERS: Emergency Medicine; Internal Medicine; Internal Medicine Critical Care Medicine; Internal Medicine Pulmonary Disease; Obstetrics & Gynecology; Specialist; Surgery
DX: J96.21 Acute and chronic respiratory failure with hypoxia (principal); J96.22 Acute and chronic respiratory failure with hypercapnia; J44.0 Chronic obstructive pulmonary disease with (acute) lower respiratory infection; J18.9 Pneumonia, unspecified organism; J44.1 Chronic obstructive pulmonary disease with (acute) exacerbation; E87.2 Acidosis; E43 Unspecified severe protein-calorie malnutrition; D64.9 Anemia, unspecified; E78.5 Hyperlipidemia, unspecified; G35 Multiple sclerosis; G47.30 Sleep apnea, unspecified; I10 Essential (primary) hypertension; K21.9 Gastro-esophageal reflux disease without esophagitis; F41.9 Anxiety disorder, unspecified; Z51.5 Encounter for palliative care; Z66 Do not resuscitate; Z68.1 Body mass index [BMI] 19.9 or less, adult; Z86.011 Personal history of benign neoplasm of the brain; Z87.891 Personal history of nicotine dependence; Z88.6 Allergy status to analgesic agent; Z99.81 Dependence on supplemental oxygen; Z91.041 Radiographic dye allergy status
CPT/HCPCS: 36600; 71010; 80048; 80053; 80198; 80202; 81003; 82140; 82550; 82553; 82565; 82803; 82948; 83605; 83735; 83880; 84100; 84484; 85025; 85027; 87040; 87070; 87077; 87086; 87116; 87186; 87205; 87206; 87449; 87502; 87641; 88108; 93005; 93306; 94002; 94003; 94640; 94640 76; 94760; 94799; 99281; 99285; J0456; J1630; J1644; J1815; J2060; J2250; J2270; J2543; J2704; J2930; J3010; J3370; J3475; J7030; J7050; J7120; S0028